=== PATIENT | female | born 1945 | race Two or more races ===

== ENCOUNTER 2023-06-30 10:34 | Emergency (ER) | payer OTHER ==
[~2023-06-30] VITALS: Ht 157.5 cm; Wt 84.8 kg
[2023-06-30] MEDS ORDERED: NORVASC2.5 M1 PO (10:56)
[2023-06-30] MEDS ORDERED: METFORMIN HCL500 MG (10:56)
== END 2023-06-30 11:59 | disposition home or self-care (01) ==
LOC: ER 10:35
DX: H26.8 Other specified cataract (principal)